=== PATIENT | male | born 2000 | race Caucasian/White ===

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

== ENCOUNTER 2021-09-20 09:07 | Emergency (ER) | payer OTHER ==
[~2021-09-20] VITALS: Ht 182.8 cm; Wt 158.8 kg
[~2021-09-20 09:07] MED LIST changes: +ZOFRAN4 MG PO
[2021-09-20] MEDS ORDERED: LEVOFLOXACIN750 M2 PO (09:30)
[2021-09-20] MEDS ORDERED: CORTISPORIN SOL10 M1 OT (09:30)
[2021-09-20] MEDS ORDERED: ULTRAM50 MG PO (09:31)
== END 2021-09-20 09:38 | disposition home or self-care (01) ==
LOC: ED 09:07
DX: H60.91 Unspecified otitis externa, right ear (principal); F17.200 Nicotine dependence, unspecified, uncomplicated